=== PATIENT | male | born 1960 | race Caucasian/White ===

== ENCOUNTER 2018-11-05 19:29 | Inpatient (IN) | payer OTHER ==
[~2018-11-05] VITALS: Ht 165.1 cm; Wt 62.1 kg
[2018-11-05 20:00] VITALS: BP_SYST 126; BP_SYST 133; BP_DIAS 72; BP_DIAS 75
--- NOTE | 2018-11-05 22:00 | NUR ---
WIRE COATING MACHINE OPERATOR ADMITTING NOTES PT DIRECT ADMITT FROM [facility], ADMITTING MAHESH KILN SETTER, DIAGNOSIS, LT LOWER LOBE PNA, ON NC @2L, O2 SAT 98%, DENIES ANY PAIN, SKIN INTACT, WITH PILI MIDLINE, ONE LUMEN,INTACT, DRESSING CHANGED, SITE INTACT S/SX OF INFX, VS STABLE, DOCUMENTED, ADMITTING ORDERS ENTERED BY KILN SETTER MAHESH PER PROTOCOL, PT AMBULATORY, CONTINENT FOR BOTH B&B, ALL NEEDS ATTENDED, CLEAN AND DRY, SAFETY PROTOCOL IN PLACE.
[2018-11-05 22:06] VITALS: BP 133/75
[2018-11-05] MEDS ORDERED: ACETAMINOPHEN 325 MG TABLET PO PRN (23:30)
[2018-11-05] MEDS ORDERED: Z GUARD REMEDY 2 OZ OINT TP PRN (23:30)
[2018-11-05] MEDS ORDERED: MAG HYDROX/AL HYDROX/SIMETH 30 ML UDC PO PRN (23:30)
[2018-11-05] MEDS ORDERED: MAGNESIUM HYDROXIDE 30 ML UDC PO PRN (23:30)
[2018-11-05] MEDS ORDERED: ONDANSETRON HCL/PF 4 MG/2 ML VIAL IVP PRN (23:30)
[2018-11-06] VITALS (7 sets, daily range): BP systolic 109–148; BP diastolic 53–85
[2018-11-06] MEDS ORDERED: ALBUTEROL FS 2.5 MG/3 ML VIAL.NEB NEB PRN ×2
[2018-11-06] MEDS ORDERED: VANCOMYCIN 1 GM in IV D5W 250ml IV ONE ×2
[2018-11-06] MEDS ORDERED: IPRATROPIUM NEB FS 0.5 MG/2.5 ML AMPUL.NEB NEB PRN
[2018-11-06] MEDS: LORAZEPAM 1 MG TABLET PO PRN ×2 (00:04→21:16)
[2018-11-06] MEDS ORDERED: VANCOMYCIN 1 GM VIAL ONE (00:04)
[2018-11-06] MEDS ORDERED: PIPERACILLIN /TAZOBACTAM 3.375 G VIAL IV ONE ×2 (00:04→06:07)
[2018-11-06] MEDS: ZOLPIDEM TARTRATE 5 MG TABLET PO PRN ×2 (00:04→21:16)
[2018-11-06] MEDS: HYDROCODONE/APAP 5/325MG 1 EACH TABLET PO PRN ×3 (00:33→19:04)
[2018-11-06] MEDS: IV NS 0.9% 1,000 ML IV PRN (00:45)
[2018-11-06] MEDS ORDERED: PIPERACILLIN /TAZOBACTAM 3.375 G in IV D5W 50 ML IV ONE ×3 (06:00)
--- NOTE | 2018-11-06 06:17 | NUR ---
CORN BREEDER CLOSING NOTE PT ENDORSED IN BED, COUGHING, AM BREATHING TX GIVEN WELL ABX ZOSYN AND VANCO 1 GM, ALL NEEDS ATTENDED, KEPT CLEAN AND DRY.
[2018-11-06 06:27] LABS: BASOPHILS # (AUTO) 0.1 /CMM (0.0-0.2); BASOPHILS % (AUTO) 0.9 % (0.0-2.0); EOSINOPHILS % (AUTO) 7.6 % (0.0-6.0); HEMATOCRIT 39 % (39-51); HEMOGLOBIN 12.8 g/dL (13.5-17.5); LYMPHOCYTES # (AUTO) 0.9 /CMM (0.8-4.8); LYMPHOCYTES % (AUTO) 12.3 % (20.0-44.0); MEAN CORPUSCULAR HGB CONC 33 g/dl (31.0-36.0); MEAN CORPUSCULAR VOLUME 96 fL (80-96); MONOCYTES # (AUTO) 0.4 /CMM (0.1-1.30); MONOCYTES % (AUTO) 6.1 % (2.0-12.0); NEUTROPHILS # (AUTO) 5.3 /CMM (1.8-8.9); NEUTROPHILS % (AUTO) 73.1 % (43.0-81.0); PLATELET COUNT (AUTO) 272 /CMM (150-450); RED BLOOD CELL COUNT(AUTO) 4.05 MIL/uL (4.5-6.0); WHITE BLOOD COUNT (AUTO) 7.2 K/uL (4.3-11.0)
[2018-11-06 06:28] LABS: CALCIUM, SERUM 8.1 mg/dL (8.5-10.1); CREATININE 1.1 mg/dL (0.6-1.3); POTASSIUM 3.8 mmol/L (3.5-5.1)
[2018-11-06] MEDS ORDERED: FEE PK DOSING 1 MIN EA MC ONE (07:11)
--- NOTE | 2018-11-06 08:58 | NUR ---
MS RN OPENING NOTE PATIENT RECEIVED IN BED SLEEPING, NO S/S OF DISTRESS. PATIENT ALERT AND ORIENTED X4, NO /SOB/CHEST PAIN. PATIENT DENIES ANY C/O OF DISCOMFORT AT THIS TIME. ALL NEEDS ATTENDED TO. PATIENT ASKED FOR ADDERALL PRESCRIPTION D/T MD BENNY NOTIFIED AND REFUSED. BED IN LOWEST LOCKED POSITION, SIDE RAILS UP X 2, CALL LIGHT AT BEDSIDE.
[2018-11-06] MEDS ORDERED: PIPERACILLIN /TAZOBACTAM 3.375 G in IV D5W 50 ML IV SCH (12:00)
[2018-11-06] MEDS ORDERED: PIPERACILLIN /TAZOBACTAM 3.375 G in IV D5W 100 ML IV SCH (13:00)
[2018-11-06] MEDS: VANCOMYCIN 1 GM in IV D5W 250 ML IV SCH (13:03)
--- NOTE | 2018-11-06 14:08 | NUR ---
MS RN NOTE ASSISTED THROUGH THE VANCOMYCIN ADMINISTRATION, PATIENT GETS UP TO READJUST HIS CHARGED PLUGGED INTO THE WALL. PATIENT SITS DOWN HE COMPLAINS OF PAIN IN HIS LFA. LFA IS FIRM TO TOUCH AND PATIENT STATES HE FEELS HIS ARM IS SWOLLEN. VANCO IS DISCONTINUED AND THE IV IT TAKEN OUT. EXTREMITY IS ELEVATED AND WARM COMPRESS IS APPLIED. MD IS NOTIFIED. RN WILL CONTINUE TO MONITOR EXTREMITY.
[2018-11-06] MEDS: ZOSYN IVPB 4.5 G in IV D5W 50ml IV SCH ×2 (17:48→23:26)
--- NOTE | 2018-11-06 18:41 | NUR ---
MS ENDING NOTES PATIENT TOLERATED TREATMENT WELL. NO S/S OF ACUTE CHANGES NO S/S OF DISTRESS. PATIENT HAS HAD ALL NEEDS ATTENDED TOO. PATIENT STABLE. PLAN OF CARE ENDORSED TO PM SHIFT. BED IN LOWEST LOCKED POSITION, SIDE RAILS UP X2, NO C/O PAIN OR DISCOMFORT. CALL LIGHT AT HAND.
--- NOTE | 2018-11-06 20:00 | NUR ---
PT SEEN BY DR JOESPH WANG, WITH ORDERS TO TRANSFER PT TO NEGATIVE PRESSURE ISOLATION ROOM FOR POSSIBLE TB SCREENING, ORDERS AND CX ORDERED TO RULE OUT TB. RT ASSIGNED NOTIFIED OF NEW ORDERS TO COLLECT SPUTUM, AFB CX'S X3. FIRST ONE TODAY 11/07/18. WILL ENDORSE TO AM SHIFT TO F/U W/PLAN OF CARE.
--- NOTE | 2018-11-06 20:46 | NUR ---
RN MS INITIAL NOTE PATIENT RECEIVED IN BED AWAKE, NO S/S OF DISTRESS. PATIENT ALERT AND ORIENTED X4, NO /SOB/ PATIENT DENIES ANY C/O OF DISCOMFORT AT THIS TIME. ALL NEEDS ATTENDED. BED IN LOWEST LOCKED POSITION, SIDE RAILS UP X 2, CALL LIGHT AT BEDSIDE.
[2018-11-07 00:02] VITALS: BP 115/53
[2018-11-07] MEDS: HYDROCODONE/APAP 5/325MG 1 EACH TABLET PO PRN ×3 (00:56→23:59)
[2018-11-07] MEDS: VANCOMYCIN 1 GM in IV D5W 250 ML IV SCH ×2 (00:58→13:03)
[2018-11-07] MEDS: ZOSYN IVPB 4.5 G in IV D5W 50ml IV SCH ×3 (05:02→18:09)
[2018-11-07 06:34] LABS: BASOPHILS % (AUTO) 0.6 % (0.0-2.0); HEMATOCRIT 40 % (39-51); HEMOGLOBIN 13.1 g/dL (13.5-17.5); LYMPHOCYTES # (AUTO) 1.1 /CMM (0.8-4.8); LYMPHOCYTES % (AUTO) 13.8 % (20.0-44.0); MEAN CORPUSCULAR HGB CONC 33 g/dl (31.0-36.0); MEAN CORPUSCULAR VOLUME 95 fL (80-96); MONOCYTES # (AUTO) 0.5 /CMM (0.1-1.30); MONOCYTES % (AUTO) 5.8 % (2.0-12.0); NEUTROPHILS # (AUTO) 5.7 /CMM (1.8-8.9); NEUTROPHILS % (AUTO) 71.8 % (43.0-81.0); PLATELET COUNT (AUTO) 268 /CMM (150-450); RED BLOOD CELL COUNT(AUTO) 4.17 MIL/uL (4.5-6.0); WHITE BLOOD COUNT (AUTO) 7.9 K/uL (4.3-11.0)
--- NOTE | 2018-11-07 06:37 | NUR ---
RN MS CLOSING NOTE PATIENT ENDORSED IN BED AWAKE, NO S/S OF DISTRESS. PATIENT ALERT AND ORIENTED X4, NO /SOB/ PATIENT DENIES ANY C/O OF DISCOMFORT AT THIS TIME. ALL NEEDS ATTENDED. BED IN LOWEST LOCKED POSITION, SIDE RAILS UP X 2, CALL LIGHT AT BEDSIDE.
--- NOTE | 2018-11-07 06:38 | NUR ---
RN MS CLOSING NOTE PATIENT ENDORSED IN BED ASLEEP, NO S/S OF DISTRESS. PATIENT ALERT AND ORIENTED X4, NO /SOB/ PATIENT DENIES ANY C/O OF DISCOMFORT AT THIS TIME. ALL NEEDS ATTENDED. BED IN LOWEST LOCKED POSITION, SIDE RAILS UP X 2, CALL LIGHT AT BEDSIDE.
[2018-11-07 06:43] LABS: BILIRUBIN,TOTAL 0.5 mg/dL (0.2-1.0); CALCIUM, SERUM 9.1 mg/dL (8.5-10.1); CREATININE 1.3 mg/dL (0.6-1.3); TOTAL PROTEIN, SERUM 5.6 g/dL (6.4-8.2)
[2018-11-07 06:51] LABS: THYROID STIMULATING HORMONE 2.454 uIU/mL (0.358-3.74)
[2018-11-07 08:00] VITALS: BP 96/57
--- NOTE | 2018-11-07 08:00 | NUR ---
RN MS INITIAL NOTE PATIENT RECEIVED IN BED AWAKE, NO S/S OF DISTRESS. PATIENT ALERT AND ORIENTED X4, NO /SOB/ PATIENT DENIES ANY C/O OF DISCOMFORT AT THIS TIME. ON ISOLATION PRECAUTIONS FOR POSSIBLE TB.SPUTUM C/S RESULTS STILL PENDING.WITH IVF INFUSING WELL AT 75 ML/HR TO PILI MIDLINE.WILL F/U MED RECORDS FROM [facility].NEEDS ATTENDED. BED IN LOWEST LOCKED POSITION, SIDE RAILS UP X 2, CALL LIGHT AT BEDSIDE.
--- NOTE | 2018-11-07 09:00 | NUR ---
CALLED [facility] MEDICAL RECORDS FOR PT'S [facility] FOR PT'S OLD MEDICAL RECORDS BUT THE OFFICE IS CLOSED.RAMANA PINK MADE AWARE.
[2018-11-07] MEDS: IV NS 0.9% 1,000 ML IV PRN ×2 (10:42→20:41)
[2018-11-07 16:00] VITALS: BP 118/74
[2018-11-07] MEDS: LACTOBACILLUS RHAMNOSUS GG 1 EACH CAP.SPRINK PO SCH (18:09)
[2018-11-07] MEDS: LORAZEPAM 1 MG TABLET PO PRN (21:48)
[2018-11-07] MEDS: ZOLPIDEM TARTRATE 5 MG TABLET PO PRN (21:51)
[2018-11-08] MEDS: ZOSYN IVPB 4.5 G in IV D5W 50ml IV SCH ×5 (00:11→23:22)
[2018-11-08] MEDS: VANCOMYCIN 1 GM in IV D5W 250 ML IV SCH ×2 (01:57→13:41)
[2018-11-08 04:00] VITALS: BP 123/69
[2018-11-08] MEDS: IV NS 0.9% 1,000 ML IV PRN ×2 (06:08→23:22)
--- NOTE | 2018-11-08 06:21 | NUR ---
RN NOTES PATIENT IN BED, RESTING COMFORTABLY WITH NO RESPIRATORY DISTRESS OR SHORTNESS OF BREATH. BREATHING EVEN AND UNLABORED. COMPLAINED OF GENERALIZED BODY PAIN, NORCO GIVEN X 2 WITH RELIEF. ALERT AND ORIENTED. VERBALLY ABLE TO COMMUNICATE NEEDS. VITAL SIGNS WNL. WILL ENDORSE TO AM SHIFT FOR CONTINUITY OF CARE
[2018-11-08 06:54] LABS: APPEARANCE,URINE CLEAR (CLEAR); BILIRUBIN,URINE NEGATIVE (NEGATIVE); BLOOD, URINE NEGATIVE Ery/uL (NEGATIVE); COLOR,URINE YELLOW (YELLOW); KETONES,URINE NEGATIVE (NEGATIVE); LEUKOCYTE ESTERASE ,URINE NEGATIVE (NEGATIVE); NITRITE, URINE NEGATIVE (NEGATIVE); PROTEIN,URINE NEGATIVE (NEGATIVE); UGLUCOSE NEGATIVE (NEGATIVE); UROBILINOGEN,URINE 0.2 EU/dL (0.2)
[2018-11-08 07:04] LABS: CALCIUM, SERUM 8.3 mg/dL (8.5-10.1)
[2018-11-08 08:00] VITALS: BP 116/65
[2018-11-08] MEDS: LACTOBACILLUS RHAMNOSUS GG 1 EACH CAP.SPRINK PO SCH ×2 (10:02→17:18)
[2018-11-08 12:00] VITALS: BP 152/67
[2018-11-08] MEDS ORDERED: AMPH20TA3 PO (12:41)
[2018-11-08] MEDS ORDERED: DEXT10TA7 PO (12:41)
[2018-11-08 16:00] VITALS: BP 115/67
--- NOTE | 2018-11-08 16:00 | NUR ---
OPAL RN NOTE FAXED TO [facility] THE FORM TO REQUEST RELEASE OF MEDICAL RECORDS. PATIENT COMPLETED AND SIGNED THE FORM AND IS AWARE AND AGREEABLE. GOT CONFIRMATION SHEET THAT FAX WAS DELIVERED. GURU CALDERÓN MADE AWARE.
[2018-11-08] MEDS: CYANOCOBALAMIN 1,000 MCG/ML VIAL IM SCH (17:19)
[2018-11-08] MEDS ORDERED: LOPERAMIDE HCL (2 MG CAP) 2 MG CAPSULE PO PRN (19:00)
--- NOTE | 2018-11-08 19:32 | NUR ---
DAVID RN NOTE PATIENT RESTING IN BED IN STABLE CONDITION, NO COMPLAINT OF PAIN OR RESPIRATORY DISTRESS. PICC LINE ON RIGHT UPPER ARM INTACT INFUSING IV FLUIDS ORDERED. CALL LIGHT WITHIN REACH, BED IN LOW LOCKED POSITION, ENDORSED TO SALES REPRESENTATIVE RURAL POWER NURSE FOR CONTINUITY OF CARE.
[2018-11-08 20:00] VITALS: BP 113/74
[2018-11-08] MEDS: HYDROCODONE/APAP 5/325MG 1 EACH TABLET PO PRN (20:56)
[2018-11-08] MEDS: LORAZEPAM 1 MG TABLET PO PRN (20:56)
[2018-11-09] MEDS: VANCOMYCIN 1 GM in IV D5W 250 ML IV SCH ×2 (00:55→14:24)
[2018-11-09] MEDS: HYDROCODONE/APAP 5/325MG 1 EACH TABLET PO PRN ×3 (02:07→23:48)
[2018-11-09 04:00] VITALS: BP 115/57
[2018-11-09] MEDS: ZOSYN IVPB 4.5 G in IV D5W 50ml IV SCH ×3 (05:29→17:47)
[2018-11-09] MEDS ORDERED: AMPHET ASP/AMPHET/D-AMPHET 10 MG TABLET PO SCH ×2 (07:30→12:00)
[2018-11-09 08:00] VITALS: BP 122/65
[2018-11-09] MEDS: LACTOBACILLUS RHAMNOSUS GG 1 EACH CAP.SPRINK PO SCH ×2 (08:58→16:47)
[2018-11-09] MEDS: CYANOCOBALAMIN 1,000 MCG/ML VIAL IM SCH (08:58)
--- NOTE | 2018-11-09 11:00 | NUR ---
DAVID RN NOTE PATIENT FILLED OUT AND SIGNED 2 COPIES OF REQUEST FOR RELEASE OF MEDICAL RECORDS FORMS ORDERED BY PROVIDERS. FAXED ONE FORM TO [facility] AND ONE FORM TO [facility]. RECEIVED MEDICAL RECORDS FROM [facility] BUT NOT FROM [facility]. FAXED TWICE, YESTERDAY AND TODAY. WILL ENDORSE TO PUPIL PERSONNEL WORKER NURSE TO FOLLOW UP TOMORROW. PLACED [facility] MEDICAL RECORDS IN PATIENT CHART.
[2018-11-09 12:02] LABS: BASOPHILS # (AUTO) 0.1 /CMM (0.0-0.2); BASOPHILS % (AUTO) 0.8 % (0.0-2.0); EOSINOPHILS % (AUTO) 3.5 % (0.0-6.0); HEMATOCRIT 43 % (39-51); HEMOGLOBIN 14.4 g/dL (13.5-17.5); LYMPHOCYTES # (AUTO) 1.2 /CMM (0.8-4.8); LYMPHOCYTES % (AUTO) 13.4 % (20.0-44.0); MEAN CORPUSCULAR HGB CONC 33 g/dl (31.0-36.0); MEAN CORPUSCULAR VOLUME 95 fL (80-96); MONOCYTES # (AUTO) 0.5 /CMM (0.1-1.30); MONOCYTES % (AUTO) 5.8 % (2.0-12.0); NEUTROPHILS # (AUTO) 6.9 /CMM (1.8-8.9); NEUTROPHILS % (AUTO) 76.5 % (43.0-81.0); PLATELET COUNT (AUTO) 276 /CMM (150-450); RED BLOOD CELL COUNT(AUTO) 4.52 MIL/uL (4.5-6.0); WHITE BLOOD COUNT (AUTO) 9.1 K/uL (4.3-11.0)
[2018-11-09 12:16] LABS: CREATININE 1.1 mg/dL (0.6-1.3); MAGNESIUM 1.9 mg/dL (1.8-2.4); PHOSPHORUS 1.6 mg/dL (2.5-4.9)
[2018-11-09 12:31] LABS: THYROID STIMULATING HORMONE 1.499 uIU/mL (0.358-3.74)
[2018-11-09] MEDS ORDERED: K PHOS NEUTRAL 250 MG TABLET PO ONE (13:00)
[2018-11-09 16:00] VITALS: BP 146/90
[2018-11-09] MEDS: IV NS 0.9% 1,000 ML IV PRN (17:48)
--- NOTE | 2018-11-09 19:30 | NUR ---
MEDSURCecy RN NOTE PATIENT RESTING IN BED IN STABLE CONDITION, NO RESPIRATORY DISTRESS NOTED, NO PAIN, ABLE TO VERBALIZE ALL NEEDS. PICC LINE ON RIGHT UPPER ARM INTACT INFUSING NORMAL SALINE ORDERED. BED IN LOW LOCKED POSITION, CALL LIGHT WITHIN REACH, ENDORSED TO PRESS MACHINE FEEDER NURSE FOR CONTINUITY OF CARE.
--- NOTE | 2018-11-09 19:45 | NUR ---
MS RN NOTE: RECEIVED PT SITTING ON BED, ALERT AND ORIENTED X4. ABLE TO MAKE NEEDS KNOWN. NO APPARENT DISTRESS NOTED. NO COMPLAINTS OF PAIN OR DISCOMFORT AT THIS TIME. NO SOB NOTED. RIGHT UPPER ARM PICC LINE INTACT AND PATENT WITH IVF NS AT 75ML/HR, INFUSING WELL. KEPT CLEAN, DRY AND COMFORTABLE. CALL LIGHT PLACED WITHIN REACH. SIDE RAILS UP X2. BED LOCKED AND IN LOWEST POSITION. DROPLET PRECAUTION OBSERVED AND MAINTAINED. WILL CONTINUE TO MONITOR PT.
[2018-11-09 20:00] VITALS: BP 131/77
[2018-11-09] MEDS: MEROPENEM 2 G in IV NS 0.9% 100 ML IV SCH (20:54)
[2018-11-09] MEDS: LORAZEPAM 1 MG TABLET PO PRN (23:48)
[2018-11-10] MEDS: VANCOMYCIN 1 GM in IV D5W 250 ML IV SCH ×2 (00:14→14:51)
[2018-11-10 04:00] VITALS: BP 128/78
[2018-11-10] MEDS: MEROPENEM 2 G in IV NS 0.9% 100 ML IV SCH ×3 (04:52→20:46)
--- NOTE | 2018-11-10 06:35 | NUR ---
MS RN NOTE: NO CHANGES NOTED THROUGHOUT THE SHIFT. NO APPARENT DISTRESS NOTED. NO COMPLAINTS OF PAIN OR DISCOMFORT AT THIS TIME. ON 2LPM NASAL CANNULA, NO SOB NOTED. RIGHT UPPER ARM PICC LINE INTACT AND PATENT. KEPT CLEAN, DRY AND COMFORTABLE. WILL ENDORSE TO DAY SHIFT RN FOR CONTINUITY OF CARE
--- NOTE | 2018-11-10 07:58 | NUR ---
RN NOTES RECEIVED PT RESTING IN BED, DENIES PAIN. NO SOB NOTED AT THIS TIME, SAFETY ENSURED. WILL MONITOR
[2018-11-10 08:00] VITALS: BP 116/49
[2018-11-10 08:09] LABS: IMMUNOGLOBULIN A, SERUM <5 mg/dL (90-386); IMMUNOGLOBULIN G, SERUM 173 mg/dL (700-1600); IMMUNOGLOBULIN M, SERUM <5 mg/dL (20-172)
[2018-11-10] MEDS: LACTOBACILLUS RHAMNOSUS GG 1 EACH CAP.SPRINK PO SCH ×2 (08:41→16:34)
[2018-11-10] MEDS: CYANOCOBALAMIN 1,000 MCG/ML VIAL IM SCH (08:41)
[2018-11-10] MEDS: LORAZEPAM 1 MG TABLET PO PRN (08:45)
--- NOTE | 2018-11-10 08:52 | NUR ---
RN NOTES ATIVAN 1 MG TAB WASTED; PT CHANGED HIS MIND NOT TO TAKE THE MED. WASTED BY ANTHONY Sauceda AND KAREN
[2018-11-10 09:00] VITALS: BP 116/69
[2018-11-10 10:38] LABS: BASOPHILS # (AUTO) 0.1 /CMM (0.0-0.2); BASOPHILS % (AUTO) 0.9 % (0.0-2.0); EOSINOPHILS % (AUTO) 6.3 % (0.0-6.0); HEMATOCRIT 41 % (39-51); HEMOGLOBIN 13.6 g/dL (13.5-17.5); LYMPHOCYTES # (AUTO) 1.4 /CMM (0.8-4.8); LYMPHOCYTES % (AUTO) 19.2 % (20.0-44.0); MEAN CORPUSCULAR HGB CONC 33 g/dl (31.0-36.0); MEAN CORPUSCULAR VOLUME 94 fL (80-96); MONOCYTES # (AUTO) 0.7 /CMM (0.1-1.30); MONOCYTES % (AUTO) 8.8 % (2.0-12.0); NEUTROPHILS # (AUTO) 4.8 /CMM (1.8-8.9); NEUTROPHILS % (AUTO) 64.8 % (43.0-81.0); PLATELET COUNT (AUTO) 254 /CMM (150-450); RED BLOOD CELL COUNT(AUTO) 4.39 MIL/uL (4.5-6.0); WHITE BLOOD COUNT (AUTO) 7.4 K/uL (4.3-11.0)
[2018-11-10 10:52] LABS: CALCIUM, SERUM 8.5 mg/dL (8.5-10.1); PHOSPHORUS 1.8 mg/dL (2.5-4.9); POTASSIUM 3.9 mmol/L (3.5-5.1)
[2018-11-10 10:59] LABS: MAGNESIUM 1.8 mg/dL (1.8-2.4)
[2018-11-10 12:11] LABS: *SPE A/G RATIO 1.7 (0.7-1.7); *SPE ALBUMIN 3.8 g/dL (2.9-4.4); *SPE ALPHA-1-GLOBULIN 0.3 g/dL (0.0-0.4); *SPE ALPHA-2-GLOBULIN 0.9 g/dL (0.4-1.0); *SPE BETA GLOBULIN 0.9 g/dL (0.7-1.3); *SPE GLOBULIN, TOTAL 2.2 g/dL (2.2-3.9); *SPE M-SPIKE Not Observed g/dL (Not Observed); *SPEGAMMA GLOBULIN 0.2 g/dL (0.4-1.8)
[2018-11-10] MEDS ORDERED: K PHOS NEUTRAL 250 MG TABLET PO ONE (14:00)
[2018-11-10] MEDS: IV NS 0.9% 1,000 ML IV PRN (14:55)
[2018-11-10 16:00] VITALS: BP 144/83
[2018-11-10 16:01] VITALS: BP 144/83
--- NOTE | 2018-11-10 18:17 | NUR ---
RN NOTES NO SIGNIFICANT CHANGES NOTED DURING THIS SHIFT, ALL MEDS GIVEN. REMAINS ON ISOLATION, PRECAUTIONS OBSERVED. WILL ENDORSE TO NEXT SHIFT FOR CONTINUITY OF CARE IN STABLE CONDITION
--- NOTE | 2018-11-10 19:40 | NUR ---
RN MS NOTES, RECEIVED IN BED, ALERT AND ORIENTED X4, ABLE TO MAKE NEEDS KNOWN, NO SOB/ ACUTE DISTRESS NOTED, NO COMPLAINTS OF PAIN OR DISCOMFORT AT THIS TIME, RIGHT UPPER ARM PICC LINE INTACT AND PATENT, IVF NS AT 75ML/HR, INFUSING WELL AND PATIENT TOLERATED WELL, CALL LIGHT PLACED WITHIN REACH, DROPLET PRECAUTION OBSERVED AND MAINTAINED, WILL CONTINUE TO MONITOR PATIENT CLOSELY.
[2018-11-10 20:00] VITALS: BP 130/78
--- NOTE | 2018-11-10 22:45 | NUR ---
RN MS NOTES, ENDORSED PATIENT IN STABLE CONDITION TO ANTHONY SHORT FOR CONTINUATION OF CARE.
--- NOTE | 2018-11-10 22:46 | NUR ---
RN MS NOTES RECEIVED PT IN BED, ALERT AND ORIENTED, VERBALLY RESPONSIVE, WITH C/O PAIN ON HIS RIBS ON THE RIGHT SIDE AND IS ASKING FOR DILAUDID. INFORMED PT THAT WE WILL INFORM JUTE BAG CUTTING MACHINE OPERATOR/MD WIRE MESH GATE ASSEMBLER. ALL PATIENT'S NEEDS ATTENDED TO AT THIS TIME. WILL CONTINUE TO MONITOR PT. PAGED WIRE MESH GATE ASSEMBLER JUTE BAG CUTTING MACHINE OPERATOR.
--- NOTE | 2018-11-10 23:30 | NUR ---
RN NOTE INFORMED DRYER OPERATOR LENI RE: PATIENT'S REQUEST FOR DILAUDID IV PUSH PAIN MEDICATION AND PER DRYER OPERATOR WE CAN ONLY GIVE PT NORCO FOR PAIN AND NOTHING ELSE. INFORMED PT AND IS AWARE OF PLAN OF CARE.
[2018-11-11] MEDS: LORAZEPAM 1 MG TABLET PO PRN (00:34)
--- NOTE | 2018-11-11 00:35 | NUR ---
RN NOTE PATIENT VERBALIZED THAT HE IS ANXIOUS AT THIS TIME. ATIVAN ADMINISTERED ORDERED.
[2018-11-11] MEDS: VANCOMYCIN 1 GM in IV D5W 250 ML IV SCH (01:00)
--- NOTE | 2018-11-11 01:00 | NUR ---
RN NOTES PATIENT REFUSED TO RECEIVE VANCOMYCIN 1GM VIA IV. EXPLAINED RISKS AND BENEFITS TO PATIENT BUT PT CONTINUES TO REFUSE.
--- NOTE | 2018-11-11 01:46 | NUR ---
RN NOTES PATIENT REFUSED TO RECEIVE VANCOMYCIN 1GM VIA IV. EXPLAINED RISKS AND BENEFITS TO PATIENT BUT PT CONTINUES TO REFUSE. CLINICAL APPEALS SPECIALIST RAMANA FARRAR AWARE WITH NO NEW ORDER AND TO FOLLOW UP WITH MORNING SHIFT.
[2018-11-11 04:00] VITALS: BP 141/80
[2018-11-11] MEDS: IV NS 0.9% 1,000 ML IV PRN (04:57)
[2018-11-11] MEDS: MEROPENEM 2 G in IV NS 0.9% 100 ML IV SCH (05:01)
--- NOTE | 2018-11-11 06:39 | NUR ---
RN CLOSING NOTES PATIENT IN BED, ASLEEP BUT EASILY AROUSABLE, NO DISTRESS AT THIS TIME, NO SOB, BREATHING EVEN AND UNLABORED. PT DENIES PAIN, PLACED CALL LIGHT WITHIN EASY REACH AND BED IN LOW POSITION AND LOCKED IN PLACE. WILL ENDORSE TO AM SHIFT NURSE FOR CONTINUITY OF CARE.
[2018-11-11 08:00] VITALS: BP 112/68
[2018-11-11] MEDS: CYANOCOBALAMIN 1,000 MCG/ML VIAL IM SCH (08:41)
[2018-11-11] MEDS: LACTOBACILLUS RHAMNOSUS GG 1 EACH CAP.SPRINK PO SCH ×2 (08:42→16:37)
--- NOTE | 2018-11-11 08:45 | NUR ---
MS RN INITIAL NOTES Patient is up sitting in bed, had breakfast with good appetite. IVF infusing, Oxygen sat 100% on 2L/min via NC, appears anxious, denies pain, non productive cough. Will collect 3rd sputum specimen, continues on droplet contact precaution. Will cont to monitor.
[2018-11-11 09:14] LABS: BASOPHILS # (AUTO) 0.1 /CMM (0.0-0.2); EOSINOPHILS % (AUTO) 5.3 % (0.0-6.0); HEMATOCRIT 44 % (39-51); HEMOGLOBIN 14.6 g/dL (13.5-17.5); LYMPHOCYTES # (AUTO) 1.7 /CMM (0.8-4.8); LYMPHOCYTES % (AUTO) 21.7 % (20.0-44.0); MEAN CORPUSCULAR HGB CONC 33 g/dl (31.0-36.0); MEAN CORPUSCULAR VOLUME 95 fL (80-96); MONOCYTES # (AUTO) 0.5 /CMM (0.1-1.30); MONOCYTES % (AUTO) 6.1 % (2.0-12.0); NEUTROPHILS # (AUTO) 5.1 /CMM (1.8-8.9); NEUTROPHILS % (AUTO) 65.9 % (43.0-81.0); PLATELET COUNT (AUTO) 242 /CMM (150-450); RED BLOOD CELL COUNT(AUTO) 4.63 MIL/uL (4.5-6.0); WHITE BLOOD COUNT (AUTO) 7.8 K/uL (4.3-11.0)
[2018-11-11 09:20] LABS: CALCIUM, SERUM 8.7 mg/dL (8.5-10.1); CREATININE 0.9 mg/dL (0.6-1.3); POTASSIUM 4.3 mmol/L (3.5-5.1)
[2018-11-11] MEDS: MEROPENEM 1 G in IV NS 0.9% 100 ML IV SCH ×2 (13:15→20:23)
[2018-11-11 16:56] VITALS: BP 126/77
--- NOTE | 2018-11-11 18:20 | NUR ---
MS RN CLOSING NOTES Patient ambulating independently, denies pain. 3rd specimen sputum sent to lab for AFB cx smear, result pending. Remain on airborne/droplet contact precaution, PPE utilized. Continued on ATB Meropenem, ID following. IVF infusing, maintained at 75ml/hr, PILI midline patent and intact. Will endorse to oncoming RN.
[2018-11-11 20:00] VITALS: BP 137/102
--- NOTE | 2018-11-11 20:00 | NUR ---
RN OPENING NOTES RECEIVED REPORT FROM YUN CRUZ. PATIENT A/A/O X4, ABLE TO MAKE NEEDS KNOWN. BREATHING EVEN & UNLABORED, TOLERATING ROOM AIR. DENIES ANY SOB OR DIFFICULTY BREATHING. RADIAL PULSES PRESENT. RIGHT UPPER ARM MIDLINE INTACT & PATENT W/ DRESSING CDI & IVF NS INFUSING WELL @ 75 ML/HR. ABLE TO AMBULATE W/ STEADY GAIT. OOB @ THIS TIME. DENIES ANY PAIN OR DISCOMFORT. INSTRUCTED TO USE CALL LIGHT FOR ASSISTANCE. AIRBORNE ISOLATION IN PLACE. WILL CONTINUE TO MONITOR.
[2018-11-11] MEDS: HYDROCODONE/APAP 5/325MG 1 EACH TABLET PO PRN (21:36)
[2018-11-11] MEDS ORDERED: KETOROLAC TROMETHAMINE INJ 30 MG/ML VIAL IM PRN (23:30)
[2018-11-12] MEDS: HYDROMORPHONE 1 MG/1 ML DISP.SYRIN IV PRN ×3 (00:11→13:54)
[2018-11-12] MEDS: LORAZEPAM 1 MG TABLET PO PRN (03:00)
[2018-11-12 04:00] VITALS: BP 98/58
[2018-11-12] MEDS: MEROPENEM 1 G in IV NS 0.9% 100 ML IV SCH ×2 (05:00→13:00)
--- NOTE | 2018-11-12 05:15 | NUR ---
RN NOTES PATIENT REFUSED IV ABX MERREM & CONTINUATION OF IV FLUIDS BECAUSE IT'S MAKING HIM FEEL MORE SICK. EXPLAINED RISKS & BENEFITS & STILL REFUSED.
--- NOTE | 2018-11-12 08:00 | NUR ---
MS RN OPENING NOTE RECEIVED PATIENT IN BED AWAKE ALERT AND ORIENTED X3. ON ROOM AIR AND OCCASIONAL NASAL CANNULA AT 2L/MIN TOLERATING WELL NO SOB OR DISTRESS NOTED, COUGH PRESENT. ON ISOLATION FOR PNEUMONIA/POSSIBLE TB AWAITING AFB #3 SMEAR. ABLE TO COMMUNICATE NEEDS. RIGHT UPPER MIDLINE INTACT AND PATENT NO REDNESS OR SWELLING NOTED, PATIENT REFUSING IV FLUIDS AT THIS TIME. REGULAR DIET. CALL LIGHT WITHIN REACH. SAFETY MEASURES IMPLEMENTED. WILL CONTINUE TO MONITOR THROUGHOUT SHIFT
[2018-11-12] MEDS: LACTOBACILLUS RHAMNOSUS GG 1 EACH CAP.SPRINK PO SCH ×2 (08:27→17:09)
[2018-11-12] MEDS: CYANOCOBALAMIN 1,000 MCG/ML VIAL IM SCH (08:27)
--- NOTE | 2018-11-12 08:28 | NUR ---
MS RN NOTE PATIENT REQUESTING PAIN MEDICATION FOR RIB AREA. DILAUDID 1MG GIVEN. WILL REASSESS PAIN FOR EFFECTIVENESS
--- NOTE | 2018-11-12 08:30 | NUR ---
MS RN NOTE PATIENT MENTIONED TO ME THIS MORNING THAT HE WANTED TO SPEAK WITH CASE MANAGEMENT IN REGARDS TO TRANSFERRING TO ANOTHER HOSPITAL. HE STATED THAT HE WAS UNHAPPY WITH THE NURSES AND CNAS FROM LAST NIGHT AND THAT HE DOESN'T KNOW WHY HE IS STILL RECEIVING ANTIBIOTICS WHEN HE SHOULD LET HIS BODY DO ITS OWN THING. INFORMED PATIENT I WOULD NOTIFY CASE MANAGEMENT AND
[2018-11-12] MEDS ORDERED: HYDR-4384 PO (09:56)
[2018-11-12] MEDS ORDERED: MERO1VIA IV (09:56)
--- NOTE | 2018-11-12 11:03 | NUR ---
MS RN NOTE PER INFECTION CONTROL ANTHONY MACEDO TO REMOVE ISOLATION FOR POSSIBLE TB
[2018-11-12] MEDS ORDERED: ERTA1VIA4 IJ (11:09)
[2018-11-12 12:00] VITALS: BP 120/68
--- NOTE | 2018-11-12 14:28 | NUR ---
MS CRUZ NOTE PATIENT REQUESTED PAIN MEDICATION -DILAUDID IV GIVEN. PAIN MEDICATION EFFECTIVE 02/07 ON PAIN SCALE NOW Addendum: 11/12/18 at 1429 by CORINNE AMIN RN DILAUDID 1 MG GIVEN FOR 07/10 GENERALIZED PAIN
[2018-11-12 15:33] LABS: BASOPHILS # (AUTO) 0.1 /CMM (0.0-0.2); BASOPHILS % (AUTO) 0.9 % (0.0-2.0); EOSINOPHILS % (AUTO) 4.1 % (0.0-6.0); HEMATOCRIT 42 % (39-51); HEMOGLOBIN 13.8 g/dL (13.5-17.5); LYMPHOCYTES # (AUTO) 2.3 /CMM (0.8-4.8); LYMPHOCYTES % (AUTO) 26.5 % (20.0-44.0); MEAN CORPUSCULAR HGB CONC 33 g/dl (31.0-36.0); MEAN CORPUSCULAR VOLUME 94 fL (80-96); MONOCYTES # (AUTO) 0.7 /CMM (0.1-1.30); NEUTROPHILS # (AUTO) 5.3 /CMM (1.8-8.9); NEUTROPHILS % (AUTO) 60.5 % (43.0-81.0); PLATELET COUNT (AUTO) 247 /CMM (150-450); RED BLOOD CELL COUNT(AUTO) 4.43 MIL/uL (4.5-6.0); WHITE BLOOD COUNT (AUTO) 8.7 K/uL (4.3-11.0)
[2018-11-12 15:43] LABS: CALCIUM, SERUM 8.8 mg/dL (8.5-10.1); CREATININE 0.9 mg/dL (0.6-1.3); POTASSIUM 3.8 mmol/L (3.5-5.1)
--- NOTE | 2018-11-12 16:00 | NUR ---
MS RN NOTE PATIENT STATED TO ME ' I AM NEVER COMING TO THIS HOSPITAL AGAIN, THIS PLACE IS HORRIBLE. I HAVE NEVER HAD A PROBLEM GETTING MY ADHD MEDICATION AND ONCE I GET ADMITTED HERE THE DOCTORS DONT WANT OT GIVE ME MY MEDICATION. THEN THE NURSES DONT WANT TO LET ME ORDER FOOD FROM OUTSIDE. I HAVE DOCUMENTED EVERY LITTLE THING AND I HAVE A GOOD CASE BUILT UP TO MAKE SURE OTHER'S ARE NOT TREATED LIKE THIS', I SHOULD HAVE LEFT THIS PLACE''
--- NOTE | 2018-11-12 18:10 | NUR ---
PUNCH CARD OPERATOR NOTE PATIENT DISCHARGED IN STABLE CONDITION TO [facility]IA [facility]. ALL BELONGINGS WITH PATIENT AND ACCOUNTED FOR AT DISCHARGE. PILI MIDLINE TO GO WITH PATIENT FOR IV ANTIBIOTICS FOR 5 DAYS WITH HOME HEALTH NURSE. ALL DUE MEDICATIONS GIVEN ORDERED. ALL NURSING CARE NEEDS ATTENDED TO NEEDED. ABLE TO COMMUNICATE NEEDS. ALL DISCHARGE INSTRUCTIONS GIVEN TO PATIENT, RECEIVED TEACH BACK FROM PATIENT HIMSELF. PRESCRIPTION GIVEN TO PATIENT, EDUCATED PATIENT ON SIDE EFFECTS AND RISK FACTORS. SKIN INTACT.
== END 2018-11-12 18:13 | disposition home or self-care (01) | DRG 720 ==
LOC: TELE1 21:46 → MEDSG1 11-06 08:53
PROVIDERS: ADMIT Nurse Practitioner Acute Care; ATTEND Student in an Organized Health Care Education/Training Program
DX: A41.9 Sepsis, unspecified organism (principal); N17.0 Acute kidney failure with tubular necrosis; J15.6 Pneumonia due to other Gram-negative bacteria; D84.9 Immunodeficiency, unspecified; D80.3 Selective deficiency of immunoglobulin G [IgG] subclasses; D89.9 Disorder involving the immune mechanism, unspecified; J15.9 Unspecified bacterial pneumonia; E83.39 Other disorders of phosphorus metabolism; J44.0 Chronic obstructive pulmonary disease with (acute) lower respiratory infection; S27.391 Other injuries of lung, unilateral; D64.9 Anemia, unspecified; F41.9 Anxiety disorder, unspecified; Z87.01 Personal history of pneumonia (recurrent); R73.9 Hyperglycemia, unspecified; Z86.59 Personal history of other mental and behavioral disorders; W34.00XS Accidental discharge from unspecified firearms or gun, sequela; E53.8 Deficiency of other specified B group vitamins; Z88.8 Allergy status to other drugs, medicaments and biological substances; Z86.14 Personal history of Methicillin resistant Staphylococcus aureus infection; J40 Bronchitis, not specified as acute or chronic; Z98.890 Other specified postprocedural states; F90.9 Attention-deficit hyperactivity disorder, unspecified type; Z79.899 Other long term (current) drug therapy
CPT/HCPCS: 36415; 71045-TC; 80048-TC; 80053-TC; 80061-TC; 80202-TC; 81000-TC; 82728-TC; 82784; 83540-TC; 83735-TC; 84100-TC; 84155; 84165; 84439-TC; 84443-TC; 85025-TC; 85730-TC; 86334; 87070-TC; 87081-TC; 87086-TC; 87116; 87186-TC; 87206; A4606; G0378; J1170; J2185; J2543; J3370; J3420; J3490; J7030; J7040; J7060; Z7610